=== PATIENT | female | born 1975 | race Two or more races ===

== ENCOUNTER 2018-03-01 09:30 | Outpatient (CLI) | payer OTHER ==
[~2018-03-01 09:30] MED LIST: ATENOLOL25 MG
== END 2018-03-01 09:43 | disposition home or self-care (01) ==
LOC: SONOGRAMA 09:30
DX: Z13.89 Encounter for screening for other disorder (principal); Z13.220 Encounter for screening for lipoid disorders; Z11.3 Encounter for screening for infections with a predominantly sexual mode of transmission; Z00.01 Encounter for general adult medical examination with abnormal findings; R10.2 Pelvic and perineal pain; Z12.39 Encounter for other screening for malignant neoplasm of breast

== ENCOUNTER 2018-03-21 14:09 | Emergency (ER) | payer OTHER ==
[~2018-03-21] VITALS: Ht 165.1 cm; Wt 84.8 kg
== END 2018-03-21 20:49 | disposition home or self-care (01) ==
LOC: ER 14:09
DX: N83.291 Other ovarian cyst, right side (principal); R10.31 Right lower quadrant pain

== ENCOUNTER 2018-07-12 17:49 | Outpatient (CLI) | payer OTHER ==
[~2018-07-12 17:49] MED LIST changes: +METHOCARBAMOL500 MG PO
== END 2018-07-12 17:55 | disposition home or self-care (01) ==
LOC: RAD 17:49
DX: R53.81 Other malaise (principal)

== ENCOUNTER → 2022-05-25 | Outpatient (CLI) | payer OTHER | END | disposition home or self-care (01) | LOC: SONOGRAMA 10:42 | PROVIDERS: ATTEND General Practice | DX: R30.0 Dysuria (principal); R31.9 Hematuria, unspecified; M54.50 Low back pain, unspecified; N23 Unspecified renal colic ==